=== PATIENT | male | born 1965 | race Caucasian/White ===

== ENCOUNTER 2018-03-14 13:23 | Inpatient (IN) | payer MEDICAID ==
[~2018-03-14] VITALS: Ht 175.3 cm; Wt 76.3 kg
[2018-03-14] MEDS ORDERED: SODIUM CHLORIDE 0.9% 500 ML IVB ONE (13:44)
[2018-03-14 14:27] LABS: Alanine Aminotransferase 27 U/L (16-61); Albumin 3.7 g/dL (3.4-5.0); Alkaline Phosphatase 96 U/L (45-117); Anion Gap 11 (5-15); Aspartate Aminotransferase 16 U/L (15-37); BUN/Creatinine Ratio 23.4; Bilirubin, Total 0.9 mg/dL (0.2-1.0); Blood Urea Nitrogen 22 mg/dL (7-18); Calcium 8.3 mg/dL (8.5-10.1); Carbon Dioxide 21 mmol/L (21-32); Chloride 111 mmol/L (98-107); GFR African American 108 mL/min; GFR Non-African American 89 mL/min; Glucose 82 mg/dL (74-106); Magnesium 2.4 mg/dL (1.6-2.6); Potassium 3.3 mmol/L (3.5-5.1); Sodium 143 mmol/L (136-145); Total Protein 7.5 g/dL (6.4-8.2)
[2018-03-14 14:32] LABS: Basophils # (auto) 0.1 uL; Basophils % (auto) 1.5 % (0.0-2.0); Eosinophils # (auto) 0.1 uL; Eosinophils % (auto) 0.9 % (0.0-7.0); Hematocrit 44.9 % (41.0-53.0); Hemoglobin 15.5 g/dL (13.5-17.5); Lymphocytes # (auto) 1.8 uL; Lymphocytes % (auto) 20.9 % (10.0-50.0); Mean Corpuscular Hemoglobin 31.6 pg (28.0-32.0); Mean Corpuscular Hgb Conc. 34.6 g/dL (32.0-36.0); Mean Corpuscular Volume 91.3 fL (80.0-100.0); Monocytes # (auto) 0.4 uL; Monocytes % (auto) 5.1 % (0.0-12.0); Neutrophils # (auto) 6.1 uL; Neutrophils % (auto) 71.6 % (37.0-80.0); Nucleated Red Blood Cells % 0.1 %; Platelet Count (auto) 289 10^3/uL (140-450); Red Blood Cells 4.91 10^6/uL (4.5-5.90); Red Cell Distribution Width 13.2 % (11.8-14.3); White Blood Cell 8.5 10^3/uL (4.4-10.8)
[2018-03-14] MEDS ORDERED: NITROGLYCERIN 0.4 MG SL TAB SL PRN (16:30)
[2018-03-14] MEDS ORDERED: DOCUSATE SOD 100 MG CAP PO PRN (16:30)
[2018-03-14] MEDS ORDERED: ONDANSETRON HCL 4 MG/2 ML VIAL IV PRN (16:30)
[2018-03-14] MEDS ORDERED: TEMAZEPAM 15 MG CAP PO PRN (16:30)
[2018-03-14] MEDS ORDERED: ACETAMINOPHEN 325 MG TAB PO PRN (16:30)
[2018-03-14] MEDS ORDERED: MORPHINE SULFATE 8mg/ml INJ SDV IV PRN ×2 (16:30)
[2018-03-14] MEDS ORDERED: HYDROcodone-ACET 5/325MG TAB PO PRN (16:30)
[2018-03-14] MEDS ORDERED: ASPirin-EC 81 mg tab PO ONE (16:30)
[2018-03-14] MEDS ORDERED: POTASSIUM CHL 10% (20 MEQ/15ML) 15ml ORAL SOLN PO ONE (16:30)
[2018-03-14] MEDS: ENOXAPARIN SOD 40 MG/0.4 ML SYRINGE SC SCH (17:00)
[2018-03-14] MEDS: ZINC SULFATE 220 MG CAP PO SCH (17:00)
[2018-03-14] MEDS: MULTIPLE VITAMIN TAB PO SCH (17:00)
[2018-03-14 19:11] VITALS: BP 161/102
[2018-03-14] MEDS: cloNIDine HCL 0.1 MG TAB PO PRN (19:24)
[2018-03-14 20:00] VITALS: BP 161/102
[2018-03-14] MEDS ORDERED: ATORVASTATIN 20 MG TAB PO SCH (22:00)
[2018-03-14] MEDS: SODIUM CHLOR 0.9% PF (SALINE LOCK) 10ML VIAL/SYR IV SCH (22:00)
[2018-03-14] MEDS: FAMOTIDINE 20 MG TAB PO SCH (22:01)
[2018-03-14] MEDS: ASCORBIC ACID 500 MG TAB PO SCH (22:01)
[2018-03-14 22:24] VITALS: BP 145/105
[2018-03-14] MEDS ORDERED: AML5T PO (22:50)
[2018-03-14] MEDS ORDERED: ATO40T PO (22:50)
[2018-03-15 03:41] LABS: Urine WBC None Seen /hpf (0 - 3)
[2018-03-15 03:53] LABS: Urine Bacteria NONE SEEN /hpf (None Seen); Urine Blood Negative /uL (Negative); Urine Mucus FEW (None Seen); Urine Specific Gravity 1.025 (1.001-1.035)
[2018-03-15 04:10] LABS: Alcohol, Urine < 3.0 mg/dL (0-5); Amphetamine Screen, Urine POSITIVE (NEGATIVE); Barbiturate Scree,Urine NEGATIVE (NEGATIVE); Benzodiazephine Screen, Urine NEGATIVE (NEGATIVE); Cannabinoid Screen, Urine POSITIVE (NEGATIVE); Cocaine Screen, Urine NEGATIVE (NEGATIVE); Opiate Scree,Urine NEGATIVE (NEGATIVE); Phencyclidine Screen, Urine NEGATIVE (NEGATIVE)
[2018-03-15] MEDS: SODIUM CHLOR 0.9% PF (SALINE LOCK) 10ML VIAL/SYR IV SCH ×2 (05:33→22:31)
[2018-03-15 05:43] VITALS: BP 164/104
[2018-03-15] MEDS: cloNIDine HCL 0.1 MG TAB PO PRN (06:02)
[2018-03-15 07:21] LABS: Basophils # (auto) 0.1 uL; Basophils % (auto) 1.2 % (0.0-2.0); Eosinophils # (auto) 0.2 uL; Eosinophils % (auto) 1.7 % (0.0-7.0); Hematocrit 44.2 % (41.0-53.0); Hemoglobin 15.3 g/dL (13.5-17.5); Lymphocytes # (auto) 2.2 uL; Lymphocytes % (auto) 24.7 % (10.0-50.0); Mean Corpuscular Hemoglobin 31.4 pg (28.0-32.0); Mean Corpuscular Hgb Conc. 34.6 g/dL (32.0-36.0); Mean Corpuscular Volume 90.8 fL (80.0-100.0); Monocytes # (auto) 0.6 uL; Neutrophils # (auto) 5.7 uL; Neutrophils % (auto) 65.4 % (37.0-80.0); Nucleated Red Blood Cells % 0.2 %; Platelet Count (auto) 283 10^3/uL (140-450); Red Blood Cells 4.87 10^6/uL (4.5-5.90); Red Cell Distribution Width 13.2 % (11.8-14.3); White Blood Cell 8.7 10^3/uL (4.4-10.8)
[2018-03-15 07:35] LABS: Albumin 3.4 g/dL (3.4-5.0); Calcium 8.5 mg/dL (8.5-10.1); Potassium 3.4 mmol/L (3.5-5.1)
[2018-03-15 07:37] LABS: BUN/Creatinine Ratio 24.5
[2018-03-15 09:00] VITALS: BP 142/94
[2018-03-15] MEDS: FAMOTIDINE 20 MG TAB PO SCH ×2 (09:58→22:31)
[2018-03-15] MEDS: ASCORBIC ACID 500 MG TAB PO SCH ×2 (09:58→22:31)
[2018-03-15] MEDS: ZINC SULFATE 220 MG CAP PO SCH (09:58)
[2018-03-15] MEDS: MULTIPLE VITAMIN TAB PO SCH (09:58)
[2018-03-15] MEDS: ENOXAPARIN SOD 40 MG/0.4 ML SYRINGE SC SCH (09:59)
[2018-03-15] MEDS: amLODIPine BESYLATE 5 MG TAB PO SCH (09:59)
[2018-03-15] MEDS ORDERED: ASPirin-EC 81 mg tab PO SCH (10:00)
[2018-03-15 13:00] VITALS: BP 154/82
[2018-03-15 16:12] VITALS: BP 162/87
[2018-03-15 22:00] VITALS: BP 152/96
[2018-03-15] MEDS ORDERED: ASPIRIN-DIPYRIDAMOLE (25/200MG) CAPSULE PO SCH (22:00)
[2018-03-15] MEDS: ATORVASTATIN 20 MG TAB PO SCH (22:31)
[2018-03-16 05:00] VITALS: BP 136/82
[2018-03-16] MEDS: SODIUM CHLOR 0.9% PF (SALINE LOCK) 10ML VIAL/SYR IV SCH ×3 (05:28→21:21)
[2018-03-16 08:00] VITALS: BP 142/94
[2018-03-16 08:57] VITALS: BP 135/86
[2018-03-16] MEDS: ASPirin 81 mg TAB PO SCH (10:36)
[2018-03-16] MEDS: MULTIPLE VITAMIN TAB PO SCH (10:36)
[2018-03-16] MEDS: ZINC SULFATE 220 MG CAP PO SCH (10:36)
[2018-03-16] MEDS: amLODIPine BESYLATE 5 MG TAB PO SCH (10:37)
[2018-03-16] MEDS: FAMOTIDINE 20 MG TAB PO SCH ×2 (10:37→21:16)
[2018-03-16] MEDS: ASCORBIC ACID 500 MG TAB PO SCH ×2 (10:37→21:15)
[2018-03-16] MEDS: ENOXAPARIN SOD 40 MG/0.4 ML SYRINGE SC SCH (10:38)
[2018-03-16 12:14] VITALS: BP 132/89
[2018-03-16 16:41] VITALS: BP 119/70
[2018-03-16] MEDS: ATORVASTATIN 20 MG TAB PO SCH (21:15)
[2018-03-16 22:00] VITALS: BP 120/94
[2018-03-17 05:00] VITALS: BP 147/98
[2018-03-17] MEDS: SODIUM CHLOR 0.9% PF (SALINE LOCK) 10ML VIAL/SYR IV SCH ×3 (05:28→21:59)
[2018-03-17 08:00] VITALS: BP 149/98
[2018-03-17] MEDS: ASCORBIC ACID 500 MG TAB PO SCH ×2 (10:20→21:59)
[2018-03-17] MEDS: amLODIPine BESYLATE 5 MG TAB PO SCH (10:22)
[2018-03-17] MEDS: FAMOTIDINE 20 MG TAB PO SCH ×2 (10:23→21:59)
[2018-03-17] MEDS: ENOXAPARIN SOD 40 MG/0.4 ML SYRINGE SC SCH (10:25)
[2018-03-17] MEDS: MULTIPLE VITAMIN TAB PO SCH (10:25)
[2018-03-17] MEDS: ASPirin 81 mg TAB PO SCH (10:26)
[2018-03-17] MEDS: ZINC SULFATE 220 MG CAP PO SCH (10:26)
[2018-03-17 12:00] VITALS: BP 156/94
[2018-03-17] MEDS: CLOPIDOGREL BISULFATE 75 MG TAB PO SCH (17:02)
[2018-03-17 17:13] VITALS: BP 156/94
[2018-03-17] MEDS: ATORVASTATIN 20 MG TAB PO SCH (21:59)
[2018-03-17 22:00] VITALS: BP 149/90
[2018-03-18 05:00] VITALS: BP 153/93
[2018-03-18] MEDS: SODIUM CHLOR 0.9% PF (SALINE LOCK) 10ML VIAL/SYR IV SCH ×2 (05:54→14:00)
[2018-03-18 09:00] VITALS: BP 150/96
[2018-03-18] MEDS: ASCORBIC ACID 500 MG TAB PO SCH (09:44)
[2018-03-18] MEDS: ENOXAPARIN SOD 40 MG/0.4 ML SYRINGE SC SCH (09:44)
[2018-03-18] MEDS: MULTIPLE VITAMIN TAB PO SCH (09:44)
[2018-03-18] MEDS: FAMOTIDINE 20 MG TAB PO SCH (09:44)
[2018-03-18] MEDS: ZINC SULFATE 220 MG CAP PO SCH (09:45)
[2018-03-18] MEDS: CLOPIDOGREL BISULFATE 75 MG TAB PO SCH (09:45)
[2018-03-18] MEDS: amLODIPine BESYLATE 5 MG TAB PO SCH (09:45)
[2018-03-18 13:00] VITALS: BP 148/92
[2018-03-18 13:24] VITALS: BP 150/96
[2018-03-18 17:00] VITALS: BP 150/87
== END 2018-03-18 19:25 | DRG 45 ==
LOC: ER 13:23 → EDBD 13:23 → TELE 13:24 → TELE-CENTR 18:48
PROVIDERS: ADMIT Internal Medicine; ATTEND Internal Medicine
DX: I63.9 Cerebral infarction, unspecified (principal); L89.150 Pressure ulcer of sacral region, unstageable; E83.51 Hypocalcemia; G81.94 Hemiplegia, unspecified affecting left nondominant side; E78.5 Hyperlipidemia, unspecified; E87.6 Hypokalemia; F15.10 Other stimulant abuse, uncomplicated; F17.210 Nicotine dependence, cigarettes, uncomplicated; N18.2 Chronic kidney disease, stage 2 (mild); I12.9 Hypertensive chronic kidney disease with stage 1 through stage 4 chronic kidney disease, or unspecified chronic kidney disease; Z79.899 Other long term (current) drug therapy; Z80.0 Family history of malignant neoplasm of digestive organs; Z82.3 Family history of stroke; Z82.49 Family history of ischemic heart disease and other diseases of the circulatory system; Z82.5 Family history of asthma and other chronic lower respiratory diseases; Z83.3 Family history of diabetes mellitus
CPT/HCPCS: 36415; 70450; 70551; 80053; 80307; 80320; 81001; 83735; 84484; 85025; 87086; 87088; 87186; 92610; 93005; 93306; 93886; 94761; 96360; 96372; 97163